=== PATIENT | female | born 1975 | race Caucasian/White ===

== ENCOUNTER 2018-03-16 14:59 | Observation (INO) ==
[2018-03-16 16:15] LABS: Bilirubin,Urine Negative (Negative); Blood,Urine Small (Negative); Clarity,Urine Clear (Clear); Color,Urine Yellow (Yellow); Glucose,Urine (UA) Normal (Normal); Ketones,Urine Negative (Negative); Leukocyte Esterase,Urine Negative (Negative); Nitrite,Urine Negative (Negative); Protein,Urine Negative (Neg-Trace); Specific Gravity,Urine 1.018 (1.010-1.025); Urobilinogen,Urine Normal (Normal)
[2018-03-16 16:17] LABS: Bacteria,Urine None Seen per hpf (None-Few); Hyaline Casts,Urine None Seen per lpf (None-Few); Squamous Epithelial Cell,Urine Moderate per lpf (None-Few); WBC,Urine 0-3 per hpf (0-3)
--- NOTE | 2018-03-16 16:24 | Emergency Department Note ---
Disposition Clinical Impression: Acute appendicitis Qualifiers: Acute appendicitis type: unspecified acute appendicitis type Qualified Code(s) : K35.80 - Unspecified acute appendicitis Disposition: Admitted As Inpatient Condition: Good Forms: ED Satisfaction Letter, Work/School Release Time of Disposition: 17:45 Abdominal Pain HPI - General Chief Complaint: ED Abdominal Pain Stated Complaint: R/O appendicitis Time Seen by Provider: 03/16/18 15:54 Source: patient Mode of arrival: ambulatory Limitations: no limitations Nursing Notes Reviewed: Yes Vital Signs Reviewed: Yes - History of Present Illness HPI Narrative: Patient is a 42-year-old female with past medical history of hypothyroidism, hypertension. She presents today due to right lower quadrant pain. She states that This pain started on Tuesday. She was seen by her primary care physician on Tuesday and was told that she could have diverticulitis. She was started on Cipro and Flagyl. She states that she has taken about 2 days worth of this medicine and continues to have pain. She was set up with CT scan outpatient today. She was called and told that her scan showed possible appendicitis. According to her, her primary care physician talked with surgeon on-call Dr. Nguyen and she was told to come to the ED for further assessment. She states that her pain has been intermittent in the right lower quadrant, sharp, worse when she moves around. She denies any known fevers. Denies any nausea, vomiting, diarrhea, consultation, dysuria, hematuria, vaginal bleeding or discharge, any concern for current . Does not take any blood thinners. Pain Scale: 3 - Related Data Home Medications Medication Instructions Recorded Confirmed Ciprofloxacin HCl [Cipro] 500 mg PO BID 03/16/18 03/16/18 Levothyroxine [Synthroid] 112 mcg PO DAILY 03/16/18 03/16/18 Metoprolol [Lopressor] 12.5 mg PO BID 03/16/18 03/16/18 Norethindrone [Lizzy] 0.35 mg PO DAILY 03/16/18 03/16/18 metroNIDAZOLE [Flagyl] 500 mg PO TID 03/16/18 03/16/18 Allergies Allergy/AdvReac Type Severity Reaction Status Date / Time Penicillins Allergy Rash Verified 03/16/18 15:12 All systems ED: reviewed and negative except as stated. Constitutional: Denies: fever Cardiovascular: Denies: chest pain Respiratory: Denies: cough, dyspnea Gastrointestinal: Reports: abdominal pain. Denies: nausea, vomiting, diarrhea, constipation Genitourinary: Denies: urgency, dysuria, frequency, hematuria Musculoskeletal: Denies: back pain Integumentary: Denies: rash Neurological: Denies: headache, weakness, numbness, paresthesias Abdominal Pain PMH - Past Medical History Medical history: Reports: thyroid disease, other Female Surgical History: Reports: Adenoidectomy, , Tonsillectomy Psychiatric history: Reports: depression - Social History Smoking status: Never smoker Alcohol use: Reports: none Drug use: Reports: none Physical Exam - General Limitations: no limitations General appearance: alert, in no apparent distress - Head Head exam: atraumatic, normocephalic, normal inspection - Eye Eye exam: Present: normal appearance, PERRL, EOMI - ENT ENT exam: normal exam, normal oropharynx, mucous membranes moist - Neck Neck exam: Present: normal inspection, full ROM, trachea midline - Chest Chest inspection: Present: normal inspection, symmetric chest wall rise - Respiratory Respiratory exam: Present: normal lung sounds bilaterally - Cardiovascular Cardiovascular exam: Present: regular rate, normal rhythm, normal heart sounds - Abdominal Exam Abdominal exam: Present: soft, tenderness (Right lower quadrant, voluntary guarding), Rovsing's sign, tenderness at McBurney's Point. Absent: distention, rebound, rigidity, Zuleta's sign - Extremities Exam Extremities exam: Present: normal inspection, full ROM. Absent: tenderness, pedal edema - Neurological Exam Neurological exam: Present: alert, oriented X3 - Psychiatric Psychiatric exam: Present: normal affect, normal mood - Skin Skin exam: Present: warm, dry, intact, normal color Course Course Narrative: Vitals within normal limits. Physical exam did show right lower quadrant tenderness at McBurney's point, a positive Rovsing sign. There is physical exam was benign. Currently, patient states that as long as she is not moving very much, she is currently in no pain. However, she does have exacerbations of pain when she is trying to set up or lay down. She currently refuses any pain medication at this time. Afebrile. She has been on outpatient Cipro and Flagyl. Perform basic blood work, urinalysis, urine , coags. Once results are back, we will talk with Dr. Nguyen. 17:45 with blood cell count elevated at 11.5. Urine negative. LFTs and lipase within normal limits. I discussed case, vitals, imaging findings with Dr. Nguyen. He states that he is currently in the emergency colectomy case. He wants the patient held in the ER until he sees the patient at bedside. He is likely going to take the patient directly from ER to ER and has asked for Levaquin, Flagyl to be given and for consent forms to be at bedside. This has been completed. 16:[address] shows: Appendix is fluid-filled and significantly dilated measuring 2 cm with wall thickening adjacent inflammatory stranding consistent acute appendicitis. 1. Acute appendicitis as described. 2. Right ovarian enlarged septated cyst measuring approximately 5.1 cm versus 2 adjacent smaller cysts. Consider pelvic ultrasound for further assessment as clinically warranted. The findings were sent to the Radiology Results Communication Center at 1:36 pm on 03/16/2018to be communicated to a licensed caregiver. Vital Signs Temperature 98.6 F 03/16/18 15:08 Pulse Rate 88 03/16/18 15:08 Respiratory Rate 16 03/16/18 15:08 Blood Pressure 135/97 03/16/18 15:08 O2 Sat by Pulse Oximetry 99 03/16/18 15:08 Temperature 98.6 F 03/16/18 15:08 Pulse Rate 88 03/16/18 15:08 Respiratory Rate 16 03/16/18 15:08 Blood Pressure 135/97 03/16/18 15:08 O2 Sat by Pulse Oximetry 99 03/16/18 15:08 Oxygen Delivery Oxygen Delivery Room Air Abdominal Pain - MDM Narrative Medical decision making narrative: Vitals within normal limits. Physical exam did show right lower quadrant tenderness at McBurney's point, a positive Rovsing sign. There is physical exam was benign. Currently, patient states that as long as she is not moving very much, she is currently in no pain. However, she does have exacerbations of pain when she is trying to set up or lay down. She currently refuses any pain medication at this time. Afebrile. She has been on outpatient Cipro and Flagyl. Perform basic blood work, urinalysis, urine , coags. Once results are back, we will talk with Dr. Nguyen. 17:45 with blood cell count elevated at 11.5. Urine negative. LFTs and lipase within normal limits. I discussed case, vitals, imaging findings with Dr. Nguyen. He states that he is currently in the emergency colectomy case. He wants the patient held in the ER until he sees the patient at bedside. He is likely going to take the patient directly from ER to ER and has asked for Levaquin, Flagyl to be given and for consent forms to be at bedside. This has been completed. 16:[address] shows: Appendix is fluid-filled and significantly dilated measuring 2 cm with wall thickening adjacent inflammatory stranding consistent acute appendicitis. 1. Acute appendicitis as described. 2. Right ovarian enlarged septated cyst measuring approximately 5.1 cm versus 2 adjacent smaller cysts. Consider pelvic ultrasound for further assessment as clinically warranted. The findings were sent to the Radiology Results Communication Center at 1:36 pm on 03/16/2018to be communicated to a licensed caregiver. - Medical Records Medical records reviewed: Yes I reviewed the patient's medical records. - Lab Data Lab results reviewed: Yes I reviewed the patient's lab results. Result diagrams: 03/16/18 15:57 03/16/18 15:57 Lab Results 03/16/18 03/16/18 03/16/18 Range/Units 15:54 15:54 15:57 WBC 11.5 H (4.3-11.1) K/mcL RBC 4.78 (3.82-4.97) M/mcL Hgb 14.5 (11.5-15.4) g/dL Hct 42.6 (35.3-44.9) % MCV 89.1 (83.0-100.0) fL MCH 30.3 (28.0-33.3) pg MCHC 34.0 (31.6-35.5) g/dL RDW 12.4 (11.5-14.5) % Plt Count 225 (140-400) K/mcL MPV 8.6 L (9.4-12.4) fL Immature Gran % 0.4 (0-4) % Seg Neutrophils % 75.4 % Lymphocytes % 15.9 % Monocytes % 6.7 % Eosinophils % 0.8 % Basophils % 0.8 % Neutrophils # 8.7 (1.6-8.9) K/mcL Lymphocytes # 1.8 (0.6-4.6) K/mcL Monocytes # 0.8 (0.0-1.3) K/mcL Eosinophils # 0.1 (0.0-0.6) K/mcL Basophils # 0.1 (0.0-0.2) K/mcL PT (9.4-12.1) Seconds INR APTT (26.0-36.0) Seconds Sodium (136-145) mEq/L Potassium (3.5-5.1) mEq/L Chloride (98-107) mEq/L Carbon Dioxide (23-29) mEq/L BUN (6-20) mg/dL Creatinine (0.60-1.20) mg/dL Est GFR ( Amer) (> 60) Est GFR (Non-Af Amer) (> 60) BUN/Creatinine Ratio (6-26) Glucose (70-105) mg/dL Calculated Osmolality (280-300) Calcium (8.6-10.3) mg/dL Total Bilirubin (0.3-1.0) mg/dL Direct Bilirubin (0.0-0.2) mg/dL Indirect Bilirubin (0.0-1.2) mg/dL AST (13-39) Units/L ALT (7-52) Units/L Alkaline Phosphatase (34-104) Units/L Serum Total Protein (6.4-8.9) g/dL Albumin (3.5-5.7) g/dL Globulin (2.4-3.5) g/dL Albumin/Globulin Ratio (1.1-2.2) Lipase (11-82) Units/L Urine Color Yellow (Yellow) Urine Clarity Clear (Clear) Urine pH 7.0 (5.0-8.0) pH Units Ur Specific [place] 1.018 (1.010-1.025) Urine Protein Negative (Neg-Trace) mg/dL Urine Glucose (UA) Normal (Normal) mg/dL Urine Ketones Negative (Negative) mg/dL Urine Blood Small H (Negative) Urine Nitrite Negative (Negative) Urine Bilirubin Negative (Negative) Urine Urobilinogen Normal (Normal) mg/dL Ur Leukocyte Esterase Negative (Negative) Urine Microscopic RBC 3-5 H (0-3) per hpf Urine Microscopic WBC 0-3 (0-3) per hpf Ur Squamous Epith Cells Moderate H (None-Few) per lpf Urine Bacteria None Seen (None-Few) per hpf Hyaline Casts None Seen (None-Few) per lpf Ur Culture Indicated? NO (NO) Urine Test Negative (Negative) 03/16/18 03/16/18 Range/Units 15:57 16:08 WBC (4.3-11.1) K/mcL RBC (3.82-4.97) M/mcL Hgb (11.5-15.4) g/dL Hct (35.3-44.9) % MCV (83.0-100.0) fL MCH (28.0-33.3) pg MCHC (31.6-35.5) g/dL RDW (11.5-14.5) % Plt Count (140-400) K/mcL MPV (9.4-12.4) fL Immature Gran % (0-4) % Seg Neutrophils % % Lymphocytes % % Monocytes % % Eosinophils % % Basophils % % Neutrophils # (1.6-8.9) K/mcL Lymphocytes # (0.6-4.6) K/mcL Monocytes # (0.0-1.3) K/mcL Eosinophils # (0.0-0.6) K/mcL Basophils # (0.0-0.2) K/mcL PT 13.1 H (9.4-12.1) Seconds INR 1.2 APTT 21.2 L (26.0-36.0) Seconds Sodium 137 (136-145) mEq/L Potassium 3.5 (3.5-5.1) mEq/L Chloride 102 (98-107) mEq/L Carbon Dioxide 29 (23-29) mEq/L BUN 7 (6-20) mg/dL Creatinine 0.82 (0.60-1.20) mg/dL Est GFR ( Amer) > 60 (> 60) Est GFR (Non-Af Amer) > 60 (> 60) BUN/Creatinine Ratio 9 (6-26) Glucose 102 (70-105) mg/dL Calculated Osmolality 282 (280-300) Calcium 9.5 (8.6-10.3) mg/dL Total Bilirubin 0.6 (0.3-1.0) mg/dL Direct Bilirubin 0.1 (0.0-0.2) mg/dL Indirect Bilirubin 0.5 (0.0-1.2) mg/dL AST 22 (13-39) Units/L ALT 26 (7-52) Units/L Alkaline Phosphatase 62 (34-104) Units/L Serum Total Protein 7.3 (6.4-8.9) g/dL Albumin 4.4 (3.5-5.7) g/dL Globulin 2.9 (2.4-3.5) g/dL Albumin/Globulin Ratio 1.5 (1.1-2.2) Lipase 17 (11-82) Units/L Urine Color (Yellow) Urine Clarity (Clear) Urine pH (5.0-8.0) pH Units Ur Specific [place] (1.010-1.025) Urine Protein (Neg-Trace) mg/dL Urine Glucose (UA) (Normal) mg/dL Urine Ketones (Negative) mg/dL Urine Blood (Negative) Urine Nitrite (Negative) Urine Bilirubin (Negative) Urine Urobilinogen (Normal) mg/dL Ur Leukocyte Esterase (Negative) Urine Microscopic RBC (0-3) per hpf Urine Microscopic WBC (0-3) per hpf Ur Squamous Epith Cells (None-Few) per lpf Urine Bacteria (None-Few) per hpf Hyaline Casts (None-Few) per lpf Ur Culture Indicated? (NO) Urine Test (Negative) - Radiology Data Radiology results reviewed: Yes I reviewed the patient's radiology results. S.B.A.R. - S.B.A.R. Situation: Demographics, MOA Background: Presenting Complaint, Relevant PMH, Meds, & Allergies Assessment: Vital Signs, Course and respsone to treatment, Exam Concerns, Patient/Family Expectation, Pertinant Lab Results Recommendation: Barrier(s) to disposition, Recommendation based on pending studies, treatments, or consults S.B.A.R. Report Given to: Dr. Nguyen Attestation Statement - Attestation Attestation: I examined this patient and my medical decision-making was reviewed with the Resident Physician, Dr. Navarro. I agree with the documented findings, disposition and treatment plan as described except to the extent set forth below. Patient is a 42-year-old white female who presents to the department sent by her primary care physician for abnormal CT showing acute appendicitis. Patient was initially seen in the office on Tuesday she been having complaints of lower abdominal pain since Tuesday. Patient states the pain comes and goes, seems to be aggravated by movement but currently she is denying any pain resting comfortably at the bed with stable vital signs. Patient was seen by her primary care physician in the office Tuesday started on Cipro and Flagyl for presumed diverticulitis. Patient's symptoms did not improve she followed up today and had an outpatient CAT scan at 1:30 today showing acute appendicitis no evidence of complication abscess or rupture. Patient denies any other associated symptoms. Patient states that her physician spoke with Dr. Nguyen and referred her here to the emergency department. I agree with patient's physical exam findings as documented. Patient with moderate tenderness to palpation in the right lower quadrant without peritoneal signs. Patient's vital signs are stable. Patient will have laboratory assessment IVs been placed. Patient's been made nothing by mouth. We will start antibiotics IV and once her labs and urine RESULTS are back we will call Dr. Nguyen and have the patient admitted for acute appendicitis.
[2018-03-16 16:35] LABS: Basophils # 0.1 K/mcL (0.0-0.2); Basophils % 0.8 %; Eosinophils # 0.1 K/mcL (0.0-0.6); Eosinophils % 0.8 %; Hematocrit 42.6 % (35.3-44.9); Hemoglobin 14.5 g/dL (11.5-15.4); Immature Granulocytes % 0.4 % (0-4); Lymphocytes # 1.8 K/mcL (0.6-4.6); Lymphocytes % 15.9 %; Mean Corpuscular Hemoglobin 30.3 pg (28.0-33.3); Mean Corpuscular Volume 89.1 fL (83.0-100.0); Mean Platelet Volume 8.6 fL (9.4-12.4); Monocytes # 0.8 K/mcL (0.0-1.3); Monocytes % 6.7 %; Neutrophils # 8.7 K/mcL (1.6-8.9); Platelet Count 225 K/mcL (140-400); Red Blood Count 4.78 M/mcL (3.82-4.97); Red Cell Distribution Width 12.4 % (11.5-14.5); Segmented Neutrophils % 75.4 %
[2018-03-16 16:41] LABS: INR 1.2; Prothrombin Time 13.1 Seconds (9.4-12.1)
[2018-03-16 16:44] LABS: Activated Partial Thrombo Time 21.2 Seconds (26.0-36.0)
[2018-03-16 16:59] LABS: Alanine Aminotransferase 26 Units/L (7-52); Albumin 4.4 g/dL (3.5-5.7); Albumin/Globulin Ratio 1.5 (1.1-2.2); Alkaline Phosphatase 62 Units/L (34-104); Aspartate Amino Transferase 22 Units/L (13-39); BUN/Creatinine Ratio 9 (6-26); Bilirubin,Direct 0.1 mg/dL (0.0-0.2); Bilirubin,Indirect 0.5 mg/dL (0.0-1.2); Bilirubin,Total 0.6 mg/dL (0.3-1.0); Blood Urea Nitrogen 7 mg/dL (6-20); Calcium 9.5 mg/dL (8.6-10.3); Carbon Dioxide 29 mEq/L (23-29); Chloride 102 mEq/L (98-107); Globulin 2.9 g/dL (2.4-3.5); Glucose 102 mg/dL (70-105); Lipase 17 Units/L (11-82); Osmolality,Calculated 282 (280-300); Potassium 3.5 mEq/L (3.5-5.1); Sodium 137 mEq/L (136-145); Total Protein 7.3 g/dL (6.4-8.9); eGFR For Non-African Americans > 60 (> 60)
[2018-03-16] MEDS ORDERED: Levofloxacin 750 MG/150 ML 750 MG/150 ML BAG IVPB ONE (17:11)
[2018-03-16] MEDS ORDERED: MetroNIDAZOLE 500 MG/100 ML 500 MG/100 ML BAG IVPB ONE (17:11)
--- NOTE | 2018-03-16 19:20 | General Surg History&Physical ---
Date of Encounter: 03/16/18 Time of Encounter: 19:18 Assessment and Plan (1) Acute appendicitis Current Visit: Yes Status: Acute The assessment and plan as outlined above was discussed with the patient and/or family members who expressed understanding and agreement. All questions were answered. I expect to the patient and family member that we will proceed with a laparoscopic appendectomy. She is already been given antibiotics and will continue with antibiotics postoperatively. At some point we will talk about evaluation for her enlarged ovarian cyst as well. Risk and benefits discussed with the patient and she agrees the above plan. Qualifiers: Acute appendicitis type: with localized peritonitis Qualified Code(s): K35.3 - Acute appendicitis with localized peritonitis History of Present Illness Chief complaint: Right lower abdominal pain HPI: Ms. Patino is a 42 year old female with a past medical history significant for hypothyroidism who states that since Tuesday of this week (3 days ago) she had the onset of intermittent right lower quadrant abdominal pain. The pain was intermittent and a sharp stabbing pain to a throbbing pain that was related to activity and movement. She states that initially it was that she had an infection and she was given antibiotics. The pain continued to worsen and she admitted to some nausea but is wondering whether or not the nausea is related to the start of taking the antibiotics. She also had some loose stools and likely related to antibiotics and only has a bowel movement 2-3 times a week without rectal bleeding. She had a CT scan performed as an outpatient which demonstrated evidence of acute appendicitis with an enlarged ovary (5 cm in size ) and subsequently was told to present itself to the emergency room for further evaluation. She states that currently she is not having very much pain as long as she does not move. She and admits to pain still being present with some continued nausea. Past Med Surg Social Fam HX - Past Medical History Medical history: thyroid disease, other Additional medical history: Raynaud's disease Psychiatric history: depression - Past Surgical History Surgical History: other (T&A, , Mastoidectomy, ear tubes) Additional surgical history: 2007 MASTOIDECTOMY - Social History Smoking Status: Never smoker Smokeless Tobacco Status: No Alcohol use: none Drug use: none - Family History Father Adopted: No Family Member Ethnicity: Non- Living Status: Hx Family Cardiac Disorders: Yes (3 bipas) Hx Family Respiratory Disorders: No Hx Family Cancer: Yes (lung) Hx Family GI Disorders: No Hx Family Endocrine Disorder: No Hx Family Neuromuscular Disorders: No Hx Family Neurologic Disorders: No Hx Family HEENT Disorders: No Hx Family Autoimmune Disorders: No Medications and Allergies Ciprofloxacin HCl [Cipro] 500 mg PO BID 03/16/18 [History] Levothyroxine [Synthroid] 112 mcg PO DAILY 03/16/18 [History] Metoprolol [Lopressor] 12.5 mg PO BID 03/16/18 [History] Norethindrone [Lizzy] 0.35 mg PO DAILY 03/16/18 [History] metroNIDAZOLE [Flagyl] 500 mg PO TID 03/16/18 [History] 3 Allergy/AdvReac Type Severity Reaction Status Date / Time Penicillins Allergy Rash Verified 03/16/18 15:12 Review of Systems All systems PM: reviewed and no additional remarkable complaints except as stated All systems PM: The remainder of the systems were reviewed and are negative General Surgery Exam Initial Vital Signs Temp Pulse Resp BP Pulse Ox 98.6 F 88 16 135/97 99 03/16/18 15:08 03/16/18 15:08 03/16/18 15:08 03/16/18 15:08 03/16/18 15:08 - General physical appearance well nourished (Mild distress) - Eyes PERRL, normal ocular movement - Respiratory normal expansion, normal respiratory effort, clear to auscultation - Cardiovascular Cardiovascular exam: Present: RRR, no murmurs/rubs/gallops - Abdomen Abdomen general surgery: Present: bowel sounds present, soft, tender (Right lower abdominal pain) - Neurologic Present: CN 2-12 grossly intact - Musculoskeletal Present: other (No clubbing or cyanosis noted) Results - Labs 03/16/18 15:57 03/16/18 15:57 Abnormal lab results WBC 11.5 K/mcL (4.3-11.1) H 03/16/18 15:57 MPV 8.6 fL (9.4-12.4) L 03/16/18 15:57 PT 13.1 Seconds (9.4-12.1) H 03/16/18 16:08 APTT 21.2 Seconds (26.0-36.0) L 03/16/18 16:08 Urine Blood Small (Negative) H 03/16/18 15:54 Urine Microscopic RBC 3-5 per hpf (0-3) H 03/16/18 15:54 Ur Squamous Epith Cells Moderate per lpf (None-Few) H 03/16/18 15:54 All other labs normal. - Imaging CT scan - abdomen: report reviewed, image reviewed (Images reviewed by me which demonstrated a 2 cm enlarged appendix possible appendicitis versus mucocele. Also evident 5 cm right ovarian cyst. No free air noted)
--- NOTE | 2018-03-16 19:36 | Anesthesia Evaluation PreOp ---
Date of Encounter: 03/16/18 Time of Encounter: 19:35 - Past History Planned Operation: Lap Appendectomy Cardiac History: HTN (on metoprolol) Pulmonary History: Denies Any Significant HX PAST DUE ACCOUNTS CLERK History: Denies Any Significant HX Other Medical History: Thyroid Anesthesia History: No Prior Anesthetic Complications : No Test: Negative Alcohol Use: none Drug use: none Medications and Allergies Ciprofloxacin HCl [Cipro] 500 mg PO BID 03/16/18 [History] Levothyroxine [Synthroid] 112 mcg PO DAILY 03/16/18 [History] Metoprolol [Lopressor] 12.5 mg PO BID 03/16/18 [History] Norethindrone [Lizzy] 0.35 mg PO DAILY 03/16/18 [History] metroNIDAZOLE [Flagyl] 500 mg PO TID 03/16/18 [History] 3 Allergy/AdvReac Type Severity Reaction Status Date / Time Penicillins Allergy Rash Verified 03/16/18 15:12 - Meds/Allergy Pre-op Review Medications Reviewed: Yes Allergies Reviewed: Yes Beta Blockers on Current Med List: Yes (Took Metoprolol today 729) Anesthesia Results - Labs 03/16/18 15:57 03/16/18 15:57 Laboratory Tests 03/16/18 03/16/18 03/16/18 15:54 15:57 15:57 Hgb 14.5 Hct 42.6 Plt Count 225 PT INR Sodium 137 Potassium 3.5 BUN 7 Creatinine 0.82 Urine Test Negative 03/16/18 16:08 Hgb Hct Plt Count PT 13.1 H INR 1.2 Sodium Potassium BUN Creatinine Urine Test Anesthesia Exam Vital Signs/O2 Sat/Glucose, Most Current Pulse Resp BP Pulse Ox 03/16/18 19:26 83 16 143/93 99 03/16/18 17:58 85 20 137/88 100 Height: 5'6 Weight: 188 lbs NPO (# of Hours): 1400 Pain Scale: 0 - HEENT Pupil (Motor): Pupils equal, EOMI Mallampati: II Teeth: Normal Oral Opening: Greater than 3 - PAST DUE ACCOUNTS CLERK LOC: Oriented PAST DUE ACCOUNTS CLERK Motor: Normal RUE, Normal LUE, Normal RLE, Normal LLE, Normal Face PAST DUE ACCOUNTS CLERK Sensory: Normal: RUE, LUE, RLE, LLE, Face - Cardiac Rhythm: Regular Murmur: None JVD: No Carotid Bruit: No - Pulmonary Breath Sounds: bilateral Clear Respiratory Effort: Symmetrical Anesthesia Assess/Plan ASA Score: 2, E Modified Jarred Scale for Level of Consciousness: Cooperative, oriented, and tranquil Anesthetic Plan: General Monitoring Plan: Standard Monitors Recovery Plan: PACU (Discussed GA, agrees to proceed)
[2018-03-16] MEDS ORDERED: Metoclopramide 10 MG/2 ML VIAL IVP ONE (19:37)
[2018-03-16] MEDS ORDERED: Famotidine 20 MG/2 ML VIAL IVP ONE (19:37)
[2018-03-16] MEDS ORDERED: Acetaminophen IV 1,000 MG/100 ML INFUS..BTL IVPB ONE (19:38)
[2018-03-16] MEDS ORDERED: Famotidine 20 MG/2 ML VIAL ONE (19:40)
[2018-03-16] MEDS ORDERED: Acetaminophen IV 1,000 MG/100 ML INFUS..BTL ONE (19:40)
[2018-03-16] MEDS ORDERED: Ringers Solution, Lactated 1,000 ML IVC SCH (19:45)
[2018-03-16] MEDS ORDERED: *HR* FentaNYL (PF) 100 MCG/2 ML VIAL ONE (19:48)
[2018-03-16] MEDS ORDERED: *HR* Succinylcholine 200 MG/10 ML VIAL IVP ONE (19:48)
[2018-03-16] MEDS ORDERED: *HR* Rocuronium Bromide 50 MG/5 ML VIAL ONE (19:48)
[2018-03-16] MEDS ORDERED: *HR* Midazolam HCl 2 MG/2 ML VIAL ONE (19:48)
[2018-03-16] MEDS ORDERED: *HR* Propofol 200 MG/20 ML VIAL IVP ONE (19:48)
[2018-03-16] MEDS ORDERED: Lidocaine -MPF 2% 2 ML VIAL ONE ×2 (19:48→19:58)
[2018-03-16] MEDS ORDERED: Ondansetron 4 MG/2 ML VIAL ONE (19:48)
[2018-03-16] MEDS ORDERED: Dexamethasone 4 MG/ML VIAL ONE (19:48)
[2018-03-16] MEDS ORDERED: Lidocaine -MPF 1% 5 ML AMPUL ONE (19:49)
[2018-03-16] MEDS ORDERED: Ketorolac 30 MG/ML VIAL ONE (20:28)
[2018-03-16] MEDS ORDERED: Neostigmine Methylsulfate 3 MG/3 ML SYRINGE ONE (20:35)
--- NOTE | 2018-03-16 21:00 | Operative Note ---
Date of procedure: 03/16/18 Pre-op diagnosis: Acute appendicitis Post-op diagnosis: same Procedure: Laparoscopic appendectomy Anesthesia: GETA Surgeon: Tj Nguyen Was there an senior care assistant present: No Estimated blood loss (cc): 15 Specimen: appendix Condition: stable Disposition: PACU Procedure in Detail: Date of surgery: 03/16/18 After properly identifying the patient, the patient was brought to the operating room and placed in supine position. After proper IV sedation was achieved followed by general endotracheal intubation, the patient's abdomen was prepped and draped in normal sterile fashion. A timeout was performed noting the patient's name and type of procedure to be performed. A subumbilical incision with an 11 blade scalpel was made down to the rectus fascia. Once the rectus fascia was incised and the abdomen entered a 12 mm port was placed through the incision and the abdomen was insufflated with carbon dioxide. A laparoscopic camera was placed through the port which showed no injury to the intra-abdominal organs upon entry. A suprapubic 5 mm port and a left lower quadrant 5 mm port were then placed under direct camera visualization. The patient was placed in a Trendelenburg position with the left side tilted downward and the right lower quadrant was examined. The appendix appeared to be distended and thickened concerning for a mucocele versus appendicitis. The lateral attachments were dissected with Bovie cauterization and the appendix was retracted superiorly. The base of the appendix actually felt enlarged and thickened and the concern was more of a mucocele at this point. Because of the thickening at the base of the appendix the decision was made to transect the distal portion of the cecum including the orifice of the appendix with the specimen. Some of the appendiceal fat was dissected with a [place] dissector and a laparoscopic FRANCES stapler was then used to transect across the base of the cecum inclusive of the appendix. The region where the appendiceal artery was noted was clipped with laparoscopic clips. Once this was performed the appendix was removed from the abdomen via an Endobag. On a separate table the appendix was examined and opened and the bulbous nature on enlarged nature of the appendix was due to exudate present within the lumen and not the presence of a mucocele. There is no evidence of a solid mass effect identified. The specimen was submitted to pathology. The right lower quadrant was reexamined and irrigated with normal saline solution. The pelvis was also examined and irrigated with normal saline solution. The patient had a enlarged right ovarian cyst approximately 4-5 cm which was consistent with the CT scan findings. Reinspection of the staple line in the right lower quadrant demonstrated no evidence of bleeding and the decision was made to conclude the surgical procedure by desufflated the abdomen and removing all ports. The rectus fascia for the subumbilical incision was reapproximated with figure- of-eight 0 Vicryl suture. The subcutaneous tissue was reapproximated with 3-0 Vicryl suture and the epidermal and dermal layers for the remaining incisions were closed with 4-0 Monocryl sutures. Needle, sponge, and instrument counts were correct 2 and the incisions were covered with Steri-Strips and Band-Aids. The patient was aroused from IV sedation, extubated in the operating room without complication, and transported to the recovery room stable condition.
[2018-03-16] MEDS ORDERED: *HR* Meperidine 25 MG/ML SYRINGE IVP PRN (21:15)
[2018-03-16] MEDS ORDERED: Ondansetron 4 MG/2 ML VIAL IVP ONE (21:15)
[2018-03-16] MEDS ORDERED: *HR* Meperidine 25 MG/ML SYRINGE ONE (21:18)
--- NOTE | 2018-03-16 21:31 | Anesthesia Evaluation Post Op ---
Date of Encounter: 03/16/18 Time of Encounter: 21:40 - Vital Signs Vital Signs: Vital Signs/O2 Sat/Glucose, Most Current Temp Pulse Resp BP Pulse Ox 03/16/18 21:19 63 16 125/77 97 03/16/18 21:09 98.6 F 106 18 125/86 98 03/16/18 19:26 83 16 143/93 99 03/16/18 17:58 85 20 137/88 100 - Lungs Lungs: Clear Ascult./Percussion - Airway Airway: Non-obstructed - Cardiovascular Regular Rate - Mental Status Mental Status: Alert & Oriented, Answers Appropriately - Pain Pain Scale: 0 - Nausea Vomiting Nausea Vomiting: Not Present - Hydration Hydration: Ice chips - Discharge PostOp Status: Transfer Patient to floor
[2018-03-16] MEDS ORDERED: Ondansetron 4 MG/2 ML VIAL IVP PRN (21:51)
[2018-03-16] MEDS ORDERED: MORPHINE SUL Oral CONC 10 MG/0.5 ML ORAL.SYG SL PRN (21:51)
[2018-03-16] MEDS ORDERED: *HR* OxyCODONE/APAP 7.5/325 TABLET PO PRN (21:51)
[2018-03-16] MEDS ORDERED: 0.9 % Sodium Chloride 1,000 ML IVC SCH (21:51)
[2018-03-17] MEDS ORDERED: Ketorolac 30 MG/ML VIAL IM SCH
[2018-03-17] MEDS: MetroNIDAZOLE 500 MG/100 ML 500 MG/100 ML BAG IVPB SCH ×3 (00:03→16:46)
[2018-03-17] MEDS: Ketorolac 30 MG/ML VIAL IVP SCH ×3 (00:03→12:37)
[2018-03-17 02:15] LABS: Basophils % 0.3 %; Eosinophils % 0.1 %; Hemoglobin 13.8 g/dL (11.5-15.4); Immature Granulocytes % 0.3 % (0-4); Lymphocytes # 1.1 K/mcL (0.6-4.6); Lymphocytes % 8.3 %; Mean Corpuscular HGB Conc 33.7 g/dL (31.6-35.5); Mean Corpuscular Hemoglobin 30.3 pg (28.0-33.3); Mean Corpuscular Volume 90.1 fL (83.0-100.0); Mean Platelet Volume 8.6 fL (9.4-12.4); Monocytes # 0.2 K/mcL (0.0-1.3); Monocytes % 1.5 %; Neutrophils # 11.3 K/mcL (1.6-8.9); Platelet Count 203 K/mcL (140-400); Red Blood Count 4.55 M/mcL (3.82-4.97); Red Cell Distribution Width 12.3 % (11.5-14.5); Segmented Neutrophils % 89.5 %
[2018-03-17 02:34] LABS: BUN/Creatinine Ratio 9 (6-26); Blood Urea Nitrogen 7 mg/dL (6-20); Calcium 8.9 mg/dL (8.6-10.3); Carbon Dioxide 24 mEq/L (23-29); Chloride 107 mEq/L (98-107); Glucose 143 mg/dL (70-105); Osmolality,Calculated 272 (280-300); Potassium 4.2 mEq/L (3.5-5.1); Sodium 131 mEq/L (136-145); eGFR For Non-African Americans > 60 (> 60)
[2018-03-17] MEDS ORDERED: *HR* Heparin 5,000 UNIT/ML VIAL SQ SCH (06:00)
[2018-03-17] MEDS ORDERED: Pantoprazole 40 MG VIAL IVP SCH (09:00)
[2018-03-17] MEDS ORDERED: Levofloxacin 500 MG/100 ML 500 MG/100 ML BAG IVPB SCH (09:00)
--- NOTE | 2018-03-17 09:28 | Discharge Summary ---
Orders not resulted at time of discharge: Pending orders 03/16/18 20:55 Surgical Pathology [PTH] Routine Date of Encounter: 03/17/18 Time of Encounter: 09:10 - Discharge Diagnosis (1) Acute appendicitis Priority: Primary Status: Resolved Qualifiers: Acute appendicitis type: with localized peritonitis Qualified Code(s): K35.3 - Acute appendicitis with localized peritonitis General Surgery Exam Initial Vital Signs Temp Pulse Resp BP Pulse Ox 98.6 F 88 16 135/97 99 03/16/18 15:08 03/16/18 15:08 03/16/18 15:08 03/16/18 15:08 03/16/18 15:08 - General physical appearance well developed, well nourished, no distress - Eyes normal ocular movement - ENT normal mucosa, atraumatic, normocephalic - Neck trachea midline - Respiratory normal respiratory effort, clear to auscultation - Cardiovascular Cardiovascular exam: Present: RRR - Abdomen Abdomen general surgery: Present: bowel sounds present, soft, tender (Expected postoperative tenderness) - Incision Incision: Present: clean and dry, intact - Integumentary Integumentary general surgery: Present: warm and dry - Neurologic Present: CN 2-12 grossly intact - Psychiatric Psychiatric general surgery: Present: appropriate, oriented to person, oriented to place, oriented to time, speech is normal, memory intact - Hospital Course Hospital course: Ms. Patino is a 42 year old female with a recent history of abdominal pain. She did have a CAT scan ordered per her primary care provider. The CAT scan did reveal evidence of acute appendicitis. The patient was admitted to the hospital for further workup and treatment. She was started on IV antibiotics and taken to the operating room for a laparoscopic appendectomy with Dr. Nguyen. On postoperative day #1, she is tolerating liquids without nausea or vomiting, vital signs are stable and afebrile, pain is controlled, she is voiding and ambulating without difficulty. We will begin discharge planning to home with 5 days of oral antibiotics. She will follow-up in the office in the next 10-14 days. At that time we will order a transvaginal ultrasound to reevaluate and ovarian cyst. We will make further recommendations after ultrasound complete. - Time Spent with Patient Total time spent providing and/or coordinating discharge services: Less than 30 minutes - Discharge Medications Prescriptions: Ondansetron ODT [Zofran ODT] 4 mg SL Q6HR PRN #30 tab.rapdis PRN Reason: Nausea OxyCODONE/APAP 5/325 [Percocet 5/325 MG] 1 each PO Q6HR PRN 5 Days #20 tablet PRN Reason: Pain Ciprofloxacin HCl [Cipro] 500 mg PO BID #10 tablet Docusate [Colace] 100 mg PO BID #30 capsule metroNIDAZOLE [Flagyl] 500 mg PO TID #15 tablet Home Medications: Levothyroxine [Synthroid] 112 mcg PO DAILY 03/16/18 [History] Metoprolol [Lopressor] 12.5 mg PO BID 03/16/18 [History] Norethindrone [Lizzy] 0.35 mg PO DAILY 03/16/18 [History] Ciprofloxacin HCl [Cipro] 500 mg PO BID #10 tablet 03/17/18 [Rx] Docusate [Colace] 100 mg PO BID #30 capsule 03/17/18 [Rx] Ondansetron ODT [Zofran ODT] 4 mg SL Q6HR PRN #30 tab.rapdis 03/17/18 [Rx] OxyCODONE/APAP 5/325 [Percocet 5/325 MG] 1 each PO Q6HR PRN 5 Days #20 tablet [Rx] metroNIDAZOLE [Flagyl] 500 mg PO TID #15 tablet 03/17/18 [Rx] Allergies/Adverse Reactions: 3 Allergy/AdvReac Type Severity Reaction Status Date / Time Penicillins Allergy Rash Verified 03/16/18 15:12 Date of admission: 03/16/18 18:09 Primary care physician: Yesika Lay MD Discharging clinician: Tj Nguyen (Zoie Taveras) Anticipated date of discharge: 03/17/18 Labs on day of discharge: Labs from last 24 hours 03/17/18 03/17/18 01:58 01:58 WBC 12.6 H RBC 4.55 Hgb 13.8 Hct 41.0 MCV 90.1 MCH 30.3 MCHC 33.7 RDW 12.3 Plt Count 203 MPV 8.6 L Immature Gran % 0.3 Seg Neutrophils % 89.5 Lymphocytes % 8.3 Monocytes % 1.5 Eosinophils % 0.1 Basophils % 0.3 Neutrophils # 11.3 H Lymphocytes # 1.1 Monocytes # 0.2 Eosinophils # 0.0 Basophils # 0.0 Sodium 131 L Potassium 4.2 Chloride 107 Carbon Dioxide 24 BUN 7 Creatinine 0.78 Est GFR ( Amer) > 60 Est GFR (Non-Af Amer) > 60 BUN/Creatinine Ratio 9 Glucose 143 H Calculated Osmolality 272 L Calcium 8.9 - Patient Status Disposition: Home, Self-Care Condition: Good Functional capacity at discharge: independent ambulation Overall status at discharge: patient is progressing back to baseline - Discharge Instructions Follow Up With: Yesika Lay MD [Primary Care Provider] - Yesika Taveras CNP [Advanced Practice Nurse] - 03/30/18 9:15 am (surgery follow-up) Forms: Work/School Release Additional Instructions: #1 may shower 03/18/18, no tub bath for 2 weeks #2 wash incisions with soap and water and pat dry daily #3 no lifting, pushing, pulling more than 15 pounds for the next 2 weeks #4 no driving until off narcotics for 24 hours and able to safely react in the car #5 may climb stairs - Diet and Activity Activity: other (See additional instructions above) Diet: advance to your usual diet - Attending Attestation For this encounter, I have reviewed the CHARTER REPRESENTATIVE or PA documentation, treatment plan, and medical decision making; and I have had face to face time with this patient.
[2018-03-17 17:20] VITALS: BP 127/85
== END 2018-03-17 18:47 | disposition home or self-care (01) ==
LOC: 3ANU 14:59 → EMEROOARM 14:59 → 3ANU 19:28
PROVIDERS: ADMIT Surgery; ATTEND Surgery